=== PATIENT | female | born 1970 | race Caucasian/White ===

== ENCOUNTER 2017-02-01 17:05 | Observation (INO) | payer SELFPAY ==
[2017-02-01] MEDS ORDERED: ALBUTEROL NEB 2.5 MG/3 ML INH ONE ×2 (17:13→17:16)
[2017-02-01] MEDS ORDERED: DEXAMETHASONE 10 MG/ML VIAL ONE (17:13)
[2017-02-01] MEDS ORDERED: DEXAMETHASONE 10 MG/ML VIAL IVP STA (17:13)
[2017-02-01] MEDS ORDERED: ALBUTEROL NEB 2.5 MG/3 ML INH STA ×3 (17:14→18:47)
[2017-02-01] MEDS ORDERED: IPRATROPIUM/ALBUTEROL 3 ML NEB INH ONE (17:40)
[2017-02-01] MEDS ORDERED: IPRATROPIUM/ALBUTEROL 3 ML NEB INH STA (17:43)
[2017-02-01] MEDS ORDERED: SODIUM CHLORIDE 0.9% 1,000 ML IV ONE ×2 (18:47)
[2017-02-01] MEDS ORDERED: LEVALBUTEROL 1.25 MG INH STA (19:02)
[2017-02-01] MEDS ORDERED: LEVALBUTEROL 1.25 MG INH ONE (19:04)
[2017-02-01] MEDS ORDERED: SODIUM CHLORIDE INHALATION 3 ML NEB ONE (19:04)
[2017-02-01] MEDS ORDERED: ZOLPIDEM 5 MG TABLET PO PRN (20:16)
[2017-02-01] MEDS ORDERED: HYDROcod/ACETAM 5/325 MG TABLET PO PRN (20:16)
[2017-02-01] MEDS ORDERED: SODIUM CHLORIDE FLUSH 0.9% 10 ML SYRINGE IVP PRN (20:16)
[2017-02-01] MEDS ORDERED: ALBUTEROL NEB 2.5 MG/3 ML INH PRN (20:16)
[2017-02-01] MEDS ORDERED: IPRATROPIUM/ALBUTEROL 3 ML NEB INH PRN (20:16)
[2017-02-01] MEDS ORDERED: ONDANSETRON 4 MG/2 ML VIAL IVP PRN (20:16)
[2017-02-01] MEDS: ACETAMINOPHEN 325 MG TABLET PO PRN (22:06)
[2017-02-01] MEDS: SODIUM CHLORIDE FLUSH 0.9% 10 ML SYRINGE IVP SCH (22:07)
[2017-02-01] MEDS: methylPREDNISolone SUCCINATE 40 MG/ML VIAL IVP SCH (22:07)
[2017-02-02] MEDS: SODIUM CHLORIDE FLUSH 0.9% 10 ML SYRINGE IVP SCH (05:33)
[2017-02-02] MEDS: ACETAMINOPHEN 325 MG TABLET PO PRN (07:44)
[2017-02-02] MEDS ORDERED: ALPRAZolam 0.25 MG TABLET PO SCH (09:00)
[2017-02-02] MEDS ORDERED: ENOXAPARIN 40 MG/0.4 ML SYRINGE SUBQ SCH (09:00)
[2017-02-02] MEDS ORDERED: POLYETHYLENE GLYCOL 3350 17 GM PACKET PO SCH (09:00)
[2017-02-02] MEDS: methylPREDNISolone SUCCINATE 40 MG/ML VIAL IVP SCH (09:34)
== END 2017-02-02 12:05 | disposition home or self-care (01) ==
DX: J45.901 Unspecified asthma with (acute) exacerbation (principal); F41.9 Anxiety disorder, unspecified; Z87.891 Personal history of nicotine dependence
CPT/HCPCS: 36415; 71010; 80053; 83690; 85025; 94150; 94640; 96361; 96374; 96375; 96376; 99284; 99285; A9270; G0378; J7613; J7620